=== PATIENT | female | born 1990 | race Caucasian/White ===

== ENCOUNTER 2017-11-09 13:20 | Emergency (ER) | payer OTHER ==
--- NOTE | 2017-11-09 13:31 | ED Physician Documentation ---
General Adult - HISTORIAN Historian: patient - HPI Stated Complaint: fall, L knee pain Chief Complaint: General Adult Onset: hours (10 hours ago) Timing: still present Severity: moderate Further Comments: yes (Pt is a 27 yo female who fell while going down her basement stairs and struck her L knee on concrete floor. Pt has pain in anterior knee over the knee cap. Pt has abrasions on knee. Tetanus is utd.) - ROS CONST: no problems EYES/ENT: none CVS/RESP: none GI/: none MS/SKIN/LYMPH: other (L knee pain) - PAST HX Past History: none Allergies/Adverse Reactions: Allergies Allergy/AdvReac Type Severity Reaction Status Date / Time No Known Allergies Allergy Unverified 11/09/17 13:30 Home Medications: Ambulatory Orders Medication Instructions Recorded Levonorgestrel [Mirena] 1 each IY 11/09/17 - SOCIAL HX Smoking History: non-smoker - FAMILY HX Family History: No Progress - Progress Progress: X-ray L knee: Left knee three views. Findings: Mild prepatellar soft tissue swelling is probably present without fracture, dislocation, significant arthropathy, or joint effusion. Tylenol 650 mg po in ER ZHANNA wrap Pt may use crutches prn Tylenol prn General Adult Physical Exam - PHYSICAL EXAM GENERAL APPEARANCE: mild distress NECK: normal inspection, supple RESPIRATORY: no resp distress, chest non-tender CVS: reg rate & rhythm, heart sounds normal BACK: normal inspection, no CVA tenderness SKIN: other (superficial abrasions, L knee) EXTREMITIES: other (pain, abrasions, anterior L knee, over patella; no lig amentous instability L knee) NEURO: oriented X3, motor nml, sensation nml Discharge Clincal Impression: Left knee injury Qualifiers: Encounter type: initial encounter Qualified Code(s): S89.92XA - Unspecified injury of left lower leg, initial encounter Referrals: Primary Doctor,No [Primary Care Provider] - Condition: Good Disposition: 01 HOME, SELF-CARE Decision to Admit: NO Decision Time: 14:11
[2017-11-09] MEDS: ACETAMINOPHEN 325 MG TABLET PO ONE (13:34)
[2017-11-09 13:38] VITALS: BP 101/72
[2017-11-09] MEDS: ACETAMINOPHEN 325 MG TABLET ONE (13:39)
--- NOTE | 2017-11-09 18:48 | Diagnostic Imaging Report ---
JUVENAL CARRIZALES [facility] [id number] [facility] [address] [address] Report Submission Date: Nov 09, 2017 2:03:34 PM CDT Patient Study Name: JANICE ALEXIS Date: Nov 09, 2017 1:37:15 PM CDT Modality Type: DX Gender: F Description: LOWER EXTREMITY : 88 Institution: [facility] Physician: JUVENAL CARRIZALES Left knee three views History: Left knee pain after fall onto concrete Findings: Mild prepatellar soft tissue swelling is probably present without fracture, dislocation, significant arthropathy, or joint effusion. Electronically signed on Nov 09, 2017 2:03:34 PM CDT by: Uriel GALVIN
== END 2017-11-09 14:26 | disposition home or self-care (01) ==
LOC: ED 13:20
DX: S89.92XA Unspecified injury of left lower leg, initial encounter (principal); W19.XXXA Unspecified fall, initial encounter; Y92.9 Unspecified place or not applicable; Y93.9 Activity, unspecified; Y99.9 Unspecified external cause status
CPT/HCPCS: 73562; 99282